=== PATIENT | female | born 1990 | race African-American/Black ===

== ENCOUNTER 2020-10-31 00:57 | Outpatient (CLI) | payer OTHER, SELFPAY ==
[2020-10-31 19:13] LABS: SARS-CoV-2 RNA PCR Negative
== END 2020-10-31 00:58 | disposition home or self-care (01) ==
LOC: ANHCOVIDDT 00:57
PROVIDERS: Visit Provider Obstetrics & Gynecology
DX: Z01.818 Encounter for other preprocedural examination (principal); Z20.828 Contact with and (suspected) exposure to other viral communicable diseases
CPT/HCPCS: 87635; C9803; U0003

== ENCOUNTER 2020-11-02 17:37 | Emergency (ER) | payer OTHER, SELFPAY ==
[2020-11-02 17:58] VITALS: BP 133/69; PULSE 82; RESP 16; TEMP 36.1; O2SAT 100
[2020-11-02 18:25] LABS: Basophils Absolute Auto 0.1 K/mm3 (0.0-0.1); Basophils Percent Auto 0.6 % (0.2-1.2); Eosinophils Absolute Auto 0.2 K/mm3 (0-0.3); Eosinophils Percent Auto 1.8 % (0-4.4); Hematocrit 33.7 % (37.0-47.0); Hemoglobin 11.2 g/dL (12.0-15.0); Immature Granulocyte Absolute 0.04 K/mm3 (0.00-0.031); Immature Granulocyte Percent A 0.3 % (0-0.5); Lymphocytes Absolute Auto 1.91 K/mm3 (0.9-3.2); Lymphocytes Percent Auto 15.1 % (18.3-44.2); Mean Corpuscular HGB Conc 33.2 g/dl (32-36); Mean Corpuscular Hemoglobin 29.4 pg (26-34); Mean Corpuscular Volume 88.5 fl (80-100); Monocytes Absolute Auto 0.7 K/mm3 (0.1-0.6); Monocytes Percent Auto 5.8 % (2.6-8.5); Neutrophils Absolute Auto 9.7 K/mm3 (1.3-6.7); Neutrophils Percent Auto 76.4 % (45.5-73.1); Platelet Count Result 316 k/mm3 (150-375); Red Blood Count 3.81 M/mm3 (4.2-5.4); Red Cell Distribution Width 12.2 % (11.5-14.5); White Blood Count 12.7 K/mm3 (4.5-10.0)
--- NOTE | 2020-11-02 18:32 | ED.GENADULT ---
HPI - General Adult General Chief complaint: Vaginal Bleeding Stated complaint: MISCARRIAGE SCHEDULED FOR D&C 11/04 Time Seen by Provider: 11/02/20 17:49 Source: RN notes reviewed History of Present Illness HPI narrative: Patient presents to emergency department from home for vaginal bleeding. Patient states that she is approximately 6 weeks . She states she has been having some increased cramping and mild vaginal bleeding and went to her [facility] Dr. Randolph today. They did an ultrasound in the office which showed the patient still had retained sac and is scheduled for D&C on the ninth of the month. Patient states that she got home and had some increased bleeding this evening and cramping pain in the emergency department for further evaluation she states she took no pain medication for the symptoms she denies any fevers or chills chest pain shortness of breath or any other symptoms Related Data Allergies Allergy/AdvReac Type Severity Reaction Status Date / Time No Known Allergies Allergy Verified 10/29/20 09:39 Review of Systems Review of Systems: Narrative: Gen.: Denies fevers or chills ENT: Denies congestion Respiratory: Denies shortness of breath or cough CV: Denies chest pain or palpitations GI: Reports abdominal cramping denies nausea, emesis or diarrhea see HPI Musculoskeletal: Denies back pain or muscle pain Neuro: Denies numbness, tingling, weakness or focal weakness Skin: Denies rash Except as documented, all other systems reviewed and negative [facility] Past Medical History Medical History (Updated 11/02/20 @ 19:53 by Lisandro Cowart DO) Patient denies significant medical history Family History Family History (Updated 07/26/19 @ 08:05 by DOCTOR UNKNOWN) Mother Hypertension Family history of sarcoidosis Grandparent Family history of elevated blood lipids Social History Social History Smoking packs per day: 0.25 Smoking cigarettes per day: 5.0 Years smoked: 10 Smoking pack-years: 2.50 Smoking status: Current every day smoker Tobacco type: cigarettes Alcohol intake: current Gender identity (if verbalized by the patient): Female Spiritual care concerns: No Exam Narrative: Exam Narrative: APPEARANCE: No acute distress, nontoxic, resting in bed EYES: EOMI HEENT: Normocephalic, atraumatic, OMM RESPIRATORY: No respiratory distress Clear to auscultation bilaterally with no rhonchi wheezing or rales. CARDIOVASCULAR: Regular rate and rhythm without murmurs rubs or gallops. ABDOMINAL: Soft, nontender, nondistended, no rebound or guarding : Normal external exam, mild amount of dark red blood with clots in vaginal canal cervix is closed MUSCULOSKELETAl: Moves all extremities. No clubbing, cyanosis or edema. NEURO: Awake and alert. Following commands, speech normal, no focal deficits SKIN:: Warm, dry. No rashes lesions or abrasions PSYCHIATRIC: Normal affect/mood, Course Course Emergency Course: Discussed with Dr. Randolph presentation work-up the patient scheduled for repeat ultrasound the office tomorrow agrees with plan for discharge and follow-up as an outpatient Patient states that they are feeling much better at this time. States abdominal pain has resolved. Repeat abdominal exam shows the patient's abdomen to be soft and nontender. Discussed with patient results of workup and diagnosis. Discussed need for follow-up with primary care physician, reasons to return to the emergency department in proper use of medication. Patient understands and agrees to current treatment plan Vital Signs Vital signs: Vital Signs Temperature 97.0 F L 11/02/20 17:58 Pulse Rate 82 11/02/20 17:58 Respiratory Rate 16 11/02/20 17:58 Blood Pressure 133/69 11/02/20 17:58 Pulse Oximetry 100 11/02/20 17:58 Temperature 97.0 F L 11/02/20 17:58 Pulse Rate 82 11/02/20 17:58 Respiratory Rate 16 11/02/20 17:58 Blood Pressure 133/
--- NOTE | 2020-11-02 18:57 | PC.NURSE ---
this RN to bedside. unsuccessful x 1 for peripheral IV access. patient has small hematoma in left AC from lab draws. alert. oriented. updated on current treatment plan and expected wait time. Angel RN to bedside.
[2020-11-02] MEDS: SODIUM CHLORIDE 0.9% IV 1,000 ML 999 ML IV CONT (19:11)
[2020-11-02 19:55] VITALS: BP 113/90; PULSE 79; RESP 18; O2SAT 100
== END 2020-11-02 20:00 | disposition home or self-care (01) ==
PROVIDERS: Emergency Medicine; Emergency Provider Emergency Medicine; PCP Nurse Practitioner Family
DX: O20.0 Threatened abortion (principal); Z3A.01 Less than 8 weeks gestation of pregnancy; O99.331 Smoking (tobacco) complicating pregnancy, first trimester; F17.210 Nicotine dependence, cigarettes, uncomplicated
CPT/HCPCS: 36415; 84702; 85025; 85461; 96361; 96374; 99284; J0131; J7030

== ENCOUNTER 2020-11-04 01:17 | Day surgery (SDC) | payer OTHER, SELFPAY ==
[2020-10-27 17:09] VITALS: BMI 37.5
[2020-11-04 06:18] VITALS: BP 119/80; PULSE 83; RESP 16; TEMP 36.7; O2SAT 100
[2020-11-04] MEDS: ACETAMINOPHEN 500 MG TABLET 1000 MG PO (07:11)
[2020-11-04] MEDS: LACTATED RINGERS 1,000 ML 30 ML IV CONT (07:20)
--- NOTE | 2020-11-04 08:04 | WPDANESEPPF ---
Anes - Initial Pre Proc Eval Procedure: Operation Date: 11/04/20 08:30 Proposed Procedures p Suction Dilation & Curettage - Araceli Randolph MD Date/Time: 11/04/20 08:04 Surgeon: Araceli Randolph MD Pre Op Diagnosis: Missed Ab Patient Data Age: 30 Gender: F Height: 5 ft 1 in Weight: 89.95 kg Last Vital Signs Temp 98.1 F 11/04/20 06:18 Pulse 83 11/04/20 06:18 Resp 16 11/04/20 06:18 BP 119/80 11/04/20 06:18 Pulse Ox 100 11/04/20 06:18 Allergies Allergy/AdvReac Type Severity Reaction Status Date / Time No Known Allergies Allergy Verified 11/04/20 07:09 Home Medications Medication Instructions Recorded Confirmed Type cholecalciferol (vitamin D3) 1,250 1,250 mcg PO WEEKLY #12 tablet 05/18/20 11/04/20 Rx mcg (50,000 unit) tablet [id number] [Pre-F 1 tablet PO DAILY 11/04/20 11/04/20 History Vitamin] Patient hx anesthesia problems: none Family hx anesthesia problems: none PMFSH Past Medical History Medical History (Updated 11/03/20 @ 00:00 by Background Daemon) Patient denies significant medical history Family History Family History (Updated 07/26/19 @ 08:05 by DOCTOR UNKNOWN) Mother Hypertension Family history of sarcoidosis Grandparent Family history of elevated blood lipids Social History Social History Smoking packs per day: 0.25 Smoking cigarettes per day: 5.0 Years smoked: 10 Smoking pack-years: 2.50 Smoking status: Current every day smoker Tobacco type: cigarettes Alcohol intake: current Living arrangements: with family Gender identity (if verbalized by the patient): Female Sexual Orientation (if Verbalized by the Patient): Straight or Heterosexual Spiritual care concerns: No Anes - Eval Final PreProcedure Day of Procedure 11/04/20 08:04 Patient weight: obese Heart: regular rate and rhythm Lungs: clear to auscultation Airway: Mallampati scale class II Neurological: alert and oriented Last oral intake: >/= 8 hours ASA classification: II Emergent: no Anesthetic plan: proceed Anesthesia type and monitoring: general GIVS and standard monitoring Informed Consent: The patient's anesthetic plan and its attendant risks and benefits were discussed with the patient/family/POA. Questions were solicited and answers provided to the satisfaction of the patient/family/POA.
--- NOTE | 2020-11-04 08:10 | PM.IMHP ---
H&P: HPI History of Present Illness Date/Time: 11/04/20 08:10 Chief complaint: Missed Ab Narrative: Sandra Wagoner is a 30 year old female with an incomplete . We have agreed to perform suction D&C. She understands there are risks to this procedure. She understands that injuries may occur that result in hospitalization, more surgery, and severe illness. She understands risk of hemorrhage and infection. I described to the patient the procedure in detail. Review of Systems Constitutional: Constitutional: Reports no additional constitutional complaints, Denies fatigue, Denies headache(s), Denies lethargy and Denies weakness Eyes: Eyes: Reports no additional eye complaints, Denies blurry vision and Denies photophobia ENT: Reports as per HPI, Denies headache(s) and Denies neck pain Cardiovascular: Cardiovascular: Denies chest pain, Denies diaphoresis, Denies leg edema, Denies palpitations and Denies dyspnea Respiratory: Respiratory: Denies hemoptysis, Denies dyspnea and Denies wheezing Gastrointestinal: Gastrointestinal: Denies abdominal pain, Denies melena, Denies bloating, Denies hematochezia, Denies nausea and Denies vomiting Genitourinary: Genitourinary: Reports no additional female genitourinary complaints Musculoskeletal: Musculoskeletal: Denies joint swelling, Denies neck pain, Denies numbness and Denies stiffness Neurologic: Denies Abnormal speech present, Denies confusion, Denies headache(s), Denies numbness and Denies weakness Psychiatric: Psychiatric: Denies anxiety, Denies confusion, Denies depression, Denies homicidal ideation and Denies suicidal ideation Endocrine: Endocrine: Denies fatigue and Denies palpitations Allergic/Immunologic: Allergic/Immunologic: Denies wheezing PMFSH Past Medical History Medical History (Updated 11/04/20 @ 08:11 by Araceli Randolph MD) Patient denies significant medical history Family History Family History (Updated 07/26/19 @ 08:05 by DOCTOR UNKNOWN) Mother Hypertension Family history of sarcoidosis Grandparent Family history of elevated blood lipids Social History Social History Smoking packs per day: 0.25 Smoking cigarettes per day: 5.0 Years smoked: 10 Smoking pack-years: 2.50 Smoking status: Current every day smoker Tobacco type: cigarettes Alcohol intake: current Living arrangements: with family Gender identity (if verbalized by the patient): Female Sexual Orientation (if Verbalized by the Patient): Straight or Heterosexual Spiritual care concerns: No Meds Home Medications and Allergies Home Medications Medication Instructions Recorded Confirmed Type cholecalciferol (vitamin D3) 1,250 1,250 mcg PO WEEKLY #12 tablet 05/18/20 11/04/20 Rx mcg (50,000 unit) tablet [id number] [Pre-F 1 tablet PO DAILY 11/04/20 11/04/20 History Vitamin] Allergies Allergy/AdvReac Type Severity Reaction Status Date / Time No Known Allergies Allergy Verified 11/04/20 07:09 Vital Signs Vital Signs - 24 hr 11/04/20 06:18 Temperature 98.1 F Pulse Rate 83 Respiratory Rate 16 Blood Pressure 119/80 Pulse Oximetry 100 Exam Const: General: healthy appearing, comfortable and no acute distress; No confusion Orientation/consciousness: No confusion Eyes: Direct Ophthalmoscopy: No photophobia Resp: Auscultation: clear to auscultation bilaterally, no rales, no rhonchi and no wheezes Cardio: Rate: regular rate Heart sounds: no click, no murmurs and no rubs GI: Inspection: non-distended GI Palp: No abdominal tenderness Auscultation: normal bowel sounds Neuro: General: No confusion Speech: No Abnormal speech present Extrem: General: normal to inspection, no pedal edema and no calf tenderness Assessment and Plan Assessment and plan (1) Incomplete : Code(s): O03.4 - Incomplete spontaneous without complicat
--- NOTE | 2020-11-04 08:11 | WPDHPUPDATE1 ---
History and Physical Update Update Date/Time: 11/04/20 08:11 History and Physical has been reviewed, including an updated exam of the patient. There are NO changes in the patient's condition. Risks, benefits, and alternatives have been discussed and questions answered. Patient agrees to proceed with procedure.
[2020-11-04] MEDS: LIDOCAINE HCL 1% LOCAL INJ 20 ML VIAL 50 ML INFILTRATE (08:42)
--- NOTE | 2020-11-04 08:51 | P.OP_ITS ---
Procedure Note - Detailed Date of procedure: 11/04/20 Pre-op diagnosis: Missed Ab Post-op diagnosis: same Procedure performed: Suction D&C Description of procedure: The patient was taken the operating room. She has prepped and draped in dorsal lithotomy position after induction of mac anesthesia. A speculum was placed in the vagina. The cervix was grasped with a tenaculum. The cervix was injected at 3 and 9:00 a.m. with 1% lidocaine. The cervix was dilated up to 8 mm using Monterroso dilators. An 8 curved plastic suction curette was then applied to the intrauterine cavity. All of the surfaces in the intrauterine cavity were curettage under VAC. A sharp medium-size curette was then used to curettage all the surfaces to confirmed the removal of all the products conception. When all surfaces for bleed to be clean the curette was r emoved. The suction curette was then reapplied to remove all the debris. The procedure was terminated. The tenaculum was removed. The speculum was removed. The patient tolerated the procedure well. She was taken recovery room in stable condition. Anesthesia: MAC Surgeon: Araceli Randolph MD Estimated blood loss (mL): 25 Drains: No Packing: No Pathology: yes Complications: No immediate complications Condition: stable Disposition: PACU Findings: Normal vulva vagina and cervix. The moderate amounts of products conception. 8 cm uterus.
[2020-11-04 08:55] VITALS: BP 131/68; PULSE 63; RESP 16; O2SAT 100
[2020-11-04 09:25] VITALS: BP 117/69; PULSE 57; RESP 16; O2SAT 100
[2020-11-04 09:41] VITALS: BP 106/69; PULSE 52; RESP 16
== END 2020-11-04 10:16 | disposition home or self-care (01) ==
PROVIDERS: PCP Nurse Practitioner Family; Visit Provider Obstetrics & Gynecology
PROC: (CPT 59820; principal; 2020-11-04 08:30)
DX: O02.1 Missed abortion (principal); F17.210 Nicotine dependence, cigarettes, uncomplicated; E66.9 Obesity, unspecified; Z68.37 Body mass index [BMI] 37.0-37.9, adult
CPT/HCPCS: 59820; 88305; A9270; J2250; J2405; J2704; J3010; J7120

== ENCOUNTER 2021-03-03 17:49 | Emergency (ER) | payer OTHER, SELFPAY ==
[2021-03-03 17:51] VITALS: BP 143/79; PULSE 82; RESP 18; TEMP 36.3; O2SAT 100
--- NOTE | 2021-03-03 18:04 | ED.FEMALEGU ---
HPI - Female Genitourinary General Chief complaint: Abdominal Pain Stated complaint: pt with abd cramping Time Seen by Provider: 03/03/21 18:00 Source: patient Mode of arrival: ambulatory Limitations: no limitations History of Present Illness HPI Narrative: Patient is a 30-year-old female complaining of lower abdominal cramping, 3 out of 10, that started today. Patient states her cramping is mild, nonradiating. Patient states that she is 7 weeks , denies any vaginal bleeding or discharge. Patient states that she has not had any care or ultrasound. Related Data Allergies Allergy/AdvReac Type Severity Reaction Status Date / Time No Known Allergies Allergy Verified 03/03/21 17:57 Review of Systems Review of Systems: All systems reviewed & are unremarkable except as noted in HPI and below Constitutional: Constitutional: Denies body ache(s), Denies chills, Denies excessive sweating, Denies fatigue, Denies fever(s), Denies headache(s), Denies lethargy, Denies malaise, Denies weakness and Denies weight loss Eyes: Eyes: Denies blurry vision, Denies change in vision and Denies loss of vision ENT: Denies dizziness, Denies ear discharge, Denies headache(s), Denies lip swelling, Denies epistaxis, Denies nasal congestion, Denies neck pain, Denies throat swelling and Denies tongue swelling Cardiovascular: Cardiovascular: Denies chest pain, Denies chest pain at rest, Denies chest pain with activity, Denies diaphoresis, Denies rapid heart rate, Denies edema, Denies irregular heart rhythm, Denies lightheadedness, Denies palpitations, Denies dyspnea and Denies dyspnea on exertion Respiratory: Respiratory: Denies chest congestion, Denies cough, Denies hemoptysis, Denies dyspnea and Denies dyspnea on exertion Gastrointestinal: Gastrointestinal: Denies melena, Denies hematochezia, Denies diarrhea, Denies nausea, Denies vomiting and Denies hematemesis Musculoskeletal: Musculoskeletal: Denies abnormal gait, Denies deformity, Denies joint swelling, Denies limited range of motion, Denies neck pain and Denies numbness Neurologic: Denies Abnormal speech present, Denies abnormal gait, Denies confusion, Denies dizziness, Denies headache(s), Denies focal weakness, Denies loss of vision, Denies numbness, Denies Other visual disturbances, Denies Sensory deficit (Neuro) and Denies weakness Psychiatric: Psychiatric: Denies confusion, Denies depression, Denies auditory hallucinations, Denies homicidal ideation and Denies suicidal ideation Endocrine: Endocrine: Denies cold intolerance, Denies excessive sweating, Denies fatigue, Denies heat intolerance and Denies palpitations Hematologic/Lymphatic: Hematologic/Lymphatic: Denies easy bleeding and Denies easy bruising Allergic/Immunologic: Allergic/Immunologic: Denies lip swelling, Denies throat swelling and Denies tongue swelling PMFSH Past Medical History Medical History Patient denies significant medical history Family History Family History Mother Hypertension Family history of sarcoidosis Grandparent Family history of elevated blood lipids Social History Social History Smoking packs per day: 0.25 Smoking cigarettes per day: 5.0 Years smoked: 10 Smoking pack-years: 2.50 Smoking status: Current every day smoker Tobacco type: cigarettes Alcohol intake: current Gender identity (if verbalized by the patient): Female Spiritual care concerns: No Exam Const: General: cooperative, healthy appearing, comfortable, no acute distress, well developed, alert and awake; No confusion Orientation/consciousness: oriented to person, oriented to place, oriented to time, patient oriented x3 and No confusion Limitations: no limitations HENMT: Head: normal to inspection, normocephalic and atraumatic Ears: he
[2021-03-03] MEDS: SODIUM CHLORIDE 0.9% IV 1,000 ML 999 ML IV CONT (18:22)
[2021-03-03 18:31] VITALS: BP 135/71; O2SAT 100
[2021-03-03 18:36] LABS: Basophils Absolute Auto 0.1 K/mm3 (0.0-0.1); Basophils Percent Auto 0.7 % (0.2-1.2); Eosinophils Absolute Auto 0.3 K/mm3 (0-0.3); Eosinophils Percent Auto 2.8 % (0-4.4); Hematocrit 39.4 % (37.0-47.0); Hemoglobin 12.5 g/dL (12.0-15.0); Immature Granulocyte Absolute 0.03 K/mm3 (0.00-0.031); Immature Granulocyte Percent A 0.3 % (0-0.5); Immature Platelet Fraction Pct 5.8 % (0.9-11.2); Lymphocytes Absolute Auto 3.06 K/mm3 (0.9-3.2); Mean Corpuscular HGB Conc 31.7 g/dl (32-36); Mean Corpuscular Hemoglobin 28.4 pg (26-34); Mean Corpuscular Volume 89.5 fl (80-100); Monocytes Absolute Auto 0.7 K/mm3 (0.1-0.6); Monocytes Percent Auto 6.3 % (2.6-8.5); Neutrophils Absolute Auto 6.4 K/mm3 (1.3-6.7); Neutrophils Percent Auto 60.9 % (45.5-73.1); Platelet Count Result 333 k/mm3 (150-375); Red Cell Distribution Width 12.3 % (11.5-14.5); White Blood Count 10.6 K/mm3 (4.5-10.0)
[2021-03-03 18:40] LABS: Add Urine Microscopic? YES; Appearance Urine Cloudy (Clear); Bacteria Urine Trace /hpf; Bilirubin Urine Negative (Negative); Blood Urine Negative (Negative); Color Urine Yellow (Yellow); Glucose Urine UA Negative (Negative); Ketones Urine Trace mg/dL (Negative); Leukocyte Esterase Ur Negative LEU/UL (Negative); Mucus Urine Rare /lpf; Nitrate Urine Negative (Negative); Protein Urine Negative (Negative); RBC Urine 0-2 /hpf (0-2); Specific Grav Ur 1.021 (1.001-1.035); Squamous Epithelial Cell Urine Occasional /hpf (Few); Urobilinogen Urine Negative mg/dL (<2.0); WBC Urine 0-3 /hpf
[2021-03-03 18:46] VITALS: BP 129/78; O2SAT 100
[2021-03-03 18:54] LABS: Alanine Aminotransferase 13 U/L (4-35); Albumin Level 4.3 g/dL (3.5-5.1); Alkaline Phosphatase 81 U/L (38-126); Anion Gap 7 mmol/L (8-16); Aspartate Amino Transferase 23 U/L (14-36); Bilirubin,Total 0.3 mg/dL (0.2-1.3); Blood Urea Nitrogen 16 mg/dL (7-17); Carbon Dioxide 23 mmol/L (22-30); Chloride 106 mmol/L (98-107); Estimated CRCL calculation 106 ml/min; Estimated Glomerular Filt Rate > 60; Glucose 90 mg/dL (65-105); Potassium 4.2 mmol/L (3.4-5.0); Sodium 136 mmol/L (137-145)
[2021-03-03 19:01] VITALS: BP 125/72; PULSE 68; RESP 16; O2SAT 100
[2021-03-03 21:00] VITALS: BP 139/87; PULSE 75; RESP 18; O2SAT 100
== END 2021-03-03 21:00 | disposition home or self-care (01) ==
PROVIDERS: Emergency Provider Emergency Medicine; PCP Nurse Practitioner Family
DX: O26.891 Other specified pregnancy related conditions, first trimester (principal); R10.2 Pelvic and perineal pain; O99.331 Smoking (tobacco) complicating pregnancy, first trimester; F17.210 Nicotine dependence, cigarettes, uncomplicated; Z3A.01 Less than 8 weeks gestation of pregnancy
CPT/HCPCS: 36415; 80053; 81001; 84702; 85025; 85055; 96360; 99283; J7030

== ENCOUNTER 2021-03-12 13:13 | Outpatient (CLI) | payer OTHER, SELFPAY ==
--- NOTE | ~2021-03-12 | US_ITS ---
EXAMINATION: US OB <=14 wk fetus w TV DATE: 03/12/2021 13:52 INDICATION: First trimester dating and viability assessment TECHNIQUE: Real-time pelvic transabdominal and transvaginal ultrasound was performed. COMPARISON: None. FINDINGS: The uterus measures 10.6 x 5.0 x 6.6 cm. There is a 1.8 x 1.3 x 1.7 cm mass in the posterio r uterine body which has the appearance of a subserosal fibroid. There is an intrauterine gestationa l sac. A yolk sac is identified. heart motion is identified measuring 141 beats per minute (bpm ) by M-mode Doppler. The crown rump length measures 11 mm , which correlates with an estimated gestational age of 7 weeks and 1 day(s) (+/-) 5 day(s). The right ovary measures 1.8 x 1.6 x 1.9 cm. The left ovary measures 1.5 x 2.0 x 3.0 cm. There is nor mal vascular flow in the ovaries. There is no free fluid in the pelvis. IMPRESSION: 1. Live intrauterine with an estimated gestational age of 7 weeks and 1 day(s) (+/-) 5 day( s) and an estimated delivery date of 10/28/2021. Reviewed, dictated and finalized at location B. IMPRESSION: 1. Live intrauterine with an estimated gestational age of 7 weeks and 1 day(s) (+/-) 5 day(s) and an estimated delivery date of 10/28/2021.
== END 2021-03-12 13:14 ==
PROVIDERS: Visit Provider Student in an Organized Health Care Education/Training Program
DX: Z34.91 Encounter for supervision of normal pregnancy, unspecified, first trimester (principal); Z3A.01 Less than 8 weeks gestation of pregnancy
CPT/HCPCS: 76801; 76817

== ENCOUNTER 2021-04-06 11:53 | Outpatient (CLI) | payer OTHER, SELFPAY ==
[2021-04-06 13:02] LABS: Basophils Absolute Auto 0.1 K/mm3 (0.0-0.1); Basophils Percent Auto 0.7 % (0.2-1.2); Eosinophils Absolute Auto 0.3 K/mm3 (0-0.3); Eosinophils Percent Auto 3.5 % (0-4.4); Hematocrit 37.3 % (37.0-47.0); Hemoglobin 12.1 g/dL (12.0-15.0); Immature Granulocyte Absolute 0.03 K/mm3 (0.00-0.031); Immature Granulocyte Percent A 0.3 % (0-0.5); Immature Platelet Fraction Pct 6.5 % (0.9-11.2); Lymphocytes Absolute Auto 2.04 K/mm3 (0.9-3.2); Lymphocytes Percent Auto 22.7 % (18.3-44.2); Mean Corpuscular HGB Conc 32.4 g/dl (32-36); Mean Corpuscular Hemoglobin 29.2 pg (26-34); Mean Corpuscular Volume 89.9 fl (80-100); Mean Platelet Volume 10.4 fl (7.4-10.4); Monocytes Absolute Auto 0.6 K/mm3 (0.1-0.6); Monocytes Percent Auto 7.1 % (2.6-8.5); Neutrophils Absolute Auto 5.9 K/mm3 (1.3-6.7); Neutrophils Percent Auto 65.7 % (45.5-73.1); Platelet Count Result 327 k/mm3 (150-375); Red Blood Count 4.15 M/mm3 (4.2-5.4); Red Cell Distribution Width 12.2 % (11.5-14.5)
[2021-04-06 13:21] LABS: Add Urine Microscopic? YES; Appearance Urine Clear (Clear); Bacteria Urine Trace /hpf; Bilirubin Urine Negative (Negative); Blood Urine Negative (Negative); Color Urine Yellow (Yellow); Glucose Urine UA Negative (Negative); Ketones Urine Trace mg/dL (Negative); Leukocyte Esterase Ur Negative LEU/UL (NEGATIVE); Mucus Urine Few /lpf; Nitrate Urine Negative (Negative); Protein Urine Negative (Negative); RBC Urine 0-2 /hpf (0-2); Specific Grav Ur 1.025 (1.001-1.035); Squamous Epithelial Cell Urine Occasional /hpf (Few); Urobilinogen Urine Negative mg/dL (<2.0); WBC Urine 0-3 /hpf (0-3)
[2021-04-06 13:46] LABS: Thyroid Stimulating Hormone 0.498 uIU/mL (0.465-4.680)
[2021-04-06 13:48] LABS: Vitamin D 25 Hydroxy 22.1 ng/mL
[2021-04-06 13:57] LABS: HIV 1/2 Ab P24 Ag Result Negative (Negative)
[2021-04-06 14:02] LABS: Hepatitis B Surface Antigen Negative (Negative); Rubella IgG Antibody 14.5 IU/ML
[2021-04-06 15:17] LABS: Hepatitis C Virus Antibody Negative (Negative)
[2021-04-07 10:20] LABS: Rapid Plasma Reagin Non-Reactive (NonReactive)
[2021-04-12 08:16] LABS: Hematocrit 37.2 % (35.0-45.0); Hemoglobin 12.3 g/dL (11.7-15.5); MCH 29.1 pg (27.0-33.0); MCV 88.2 FL (80.0-100.0); RDW 12.7 % (11.0-15.0); Red Blood Cell Count 4.22 Mill/uL (3.80-5.10)
== END 2021-04-06 11:54 | disposition home or self-care (01) ==
PROVIDERS: PCP Nurse Practitioner Family; Visit Provider Student in an Organized Health Care Education/Training Program
DX: Z34.90 Encounter for supervision of normal pregnancy, unspecified, unspecified trimester (principal); Z3A.00 Weeks of gestation of pregnancy not specified
CPT/HCPCS: 36415; 81001; 82306; 83021; 84443; 85025; 85055; 86592; 86703; 86762; 86787; 86803; 86850; 86900; 86901; 87086; 87340; G0432

== ENCOUNTER 2021-08-06 07:55 | Outpatient (CLI) | payer OTHER, SELFPAY ==
[2021-08-06 09:10] LABS: Glucose Fasting Gestational 95 mg/dL (>/=95)
[2021-08-06 11:20] LABS: Glucose 1 Hour Gest 201 mg/dL (>/=180)
[2021-08-06 11:59] LABS: Glucose 2 Hour Gest 172 mg/dL (>/= 155)
[2021-08-06 13:17] LABS: Glucose 3 Hour Gest 126 mg/dL (>/=140)
== END 2021-08-06 07:56 | disposition home or self-care (01) ==
PROVIDERS: PCP Nurse Practitioner Family; Visit Provider Obstetrics & Gynecology
DX: Z34.92 Encounter for supervision of normal pregnancy, unspecified, second trimester (principal); Z3A.00 Weeks of gestation of pregnancy not specified
CPT/HCPCS: 36415; 82951; 82952

== ENCOUNTER 2021-08-10 16:00 | Outpatient (RCR) | payer OTHER, SELFPAY ==
[2021-08-10 16:37] VITALS: BP 121/67; PULSE 85
== END 2021-11-08 23:59 | disposition home or self-care (01) ==
LOC: ANHOBOP 16:00
PROVIDERS: PCP Nurse Practitioner Family; Visit Provider Obstetrics & Gynecology
DX: O36.8130 Decreased fetal movements, third trimester, not applicable or unspecified (principal); Z3A.28 28 weeks gestation of pregnancy
CPT/HCPCS: 59025

== ENCOUNTER 2021-09-21 11:42 | Outpatient (CLI) | payer OTHER, SELFPAY ==
[2021-09-21 12:12] LABS: Basophils Percent Auto 0.4 % (0.2-1.2); Eosinophils Absolute Auto 0.1 K/mm3 (0-0.3); Eosinophils Percent Auto 1.5 % (0-4.4); Hematocrit 35.4 % (37.0-47.0); Hemoglobin 11.5 g/dL (12.0-15.0); Immature Granulocyte Absolute 0.06 K/mm3 (0.00-0.031); Immature Granulocyte Percent A 0.7 % (0-0.5); Lymphocytes Absolute Auto 1.77 K/mm3 (0.9-3.2); Lymphocytes Percent Auto 19.2 % (18.3-44.2); Mean Corpuscular HGB Conc 32.5 g/dl (32-36); Mean Corpuscular Hemoglobin 29.7 pg (26-34); Mean Corpuscular Volume 91.5 fl (80-100); Mean Platelet Volume 10.8 fl (7.4-10.4); Monocytes Absolute Auto 0.7 K/mm3 (0.1-0.6); Monocytes Percent Auto 7.4 % (2.6-8.5); Neutrophils Absolute Auto 6.5 K/mm3 (1.3-6.7); Neutrophils Percent Auto 70.8 % (45.5-73.1); Platelet Count Result 238 k/mm3 (150-375); Red Blood Count 3.87 M/mm3 (4.2-5.4); Red Cell Distribution Width 12.5 % (11.5-14.5); White Blood Count 9.2 K/mm3 (4.5-10.0)
[2021-09-21 13:12] LABS: HIV 1/2 Ab P24 Ag Result Negative (Negative)
[2021-09-22 08:30] LABS: Rapid Plasma Reagin Non-Reactive (NonReactive)
== END 2021-09-21 11:43 | disposition home or self-care (01) ==
LOC: ANHLAB 11:44
PROVIDERS: PCP Nurse Practitioner Family; Visit Provider Student in an Organized Health Care Education/Training Program
DX: Z34.90 Encounter for supervision of normal pregnancy, unspecified, unspecified trimester (principal); Z3A.00 Weeks of gestation of pregnancy not specified
CPT/HCPCS: 36415; 85025; 86592; 86703; G0432

== ENCOUNTER 2021-10-14 15:27 | Outpatient (CLI) | payer OTHER, SELFPAY ==
[2021-10-14] VITALS (16 sets, daily range): BP systolic 116–147; BP diastolic 62–96; PULSE 76–90; TEMP 37; BMI 41.8
--- NOTE | 2021-10-14 16:10 | OBADM ---
Addendum entered by Eve Mims RN 10/14/21 16:59: Admitted as clinical outpatient for evaluation of hypertension in . Original Note: This patient, Sandra Wagoner, admitted to the OB room OB Post 113 for observation. Patient/family oriented to hospital policies and general routines including ID bracelet, bed and alarms, visiting hours, pain management, procedures, bathroom and other care routines, personal items, smoking policy, room service/diet, and visiting hours. Patient/Family are encouraged to report perceived risks to care and to ask questions if they do not understand what they are told or what they should do.
--- NOTE | 2021-10-14 16:54 | PC.NURSE ---
Dr. Perez stopped in pt room to check on her. Viewed reactive NST and BP's. Labs not back yet.
[2021-10-14 17:01] LABS: Basophils Percent Auto 0.4 % (0.2-1.2); Eosinophils Absolute Auto 0.1 K/mm3 (0-0.3); Eosinophils Percent Auto 0.9 % (0-4.4); Hemoglobin 11.1 g/dL (12.0-15.0); Immature Granulocyte Absolute 0.07 K/mm3 (0.00-0.031); Immature Granulocyte Percent A 0.8 % (0-0.5); Lymphocytes Absolute Auto 1.87 K/mm3 (0.9-3.2); Lymphocytes Percent Auto 20.4 % (18.3-44.2); Mean Corpuscular HGB Conc 32.6 g/dl (32-36); Mean Corpuscular Hemoglobin 29.4 pg (26-34); Mean Corpuscular Volume 89.9 fl (80-100); Mean Platelet Volume 10.5 fl (7.4-10.4); Monocytes Absolute Auto 0.7 K/mm3 (0.1-0.6); Monocytes Percent Auto 7.6 % (2.6-8.5); Neutrophils Absolute Auto 6.4 K/mm3 (1.3-6.7); Neutrophils Percent Auto 69.9 % (45.5-73.1); Platelet Count Result 273 k/mm3 (150-375); Red Blood Count 3.78 M/mm3 (4.2-5.4); Red Cell Distribution Width 12.7 % (11.5-14.5); White Blood Count 9.2 K/mm3 (4.5-10.0)
[2021-10-14 17:03] LABS: Add Urine Microscopic? YES; Appearance Urine Clear (Clear); Bilirubin Urine Negative (Negative); Blood Urine Negative (Negative); Color Urine Yellow (Yellow); Glucose Urine UA Negative (Negative); Ketones Urine 2+ mg/dL (Negative); Leukocyte Esterase Ur Negative LEU/UL (Negative); Mucus Urine Rare /lpf; Nitrate Urine Negative (Negative); Protein Urine Negative (Negative); RBC Urine 0-2 /hpf (0-2); Specific Grav Ur 1.018 (1.001-1.035); Squamous Epithelial Cell Urine Occasional /hpf (Few); Urobilinogen Urine Negative mg/dL (<2.0); WBC Urine 0-3 /hpf
[2021-10-14 17:22] LABS: Alanine Aminotransferase 16 U/L (4-35); Albumin Level 3.3 g/dL (3.5-5.1); Alkaline Phosphatase 191 U/L (38-126); Anion Gap 8 mmol/L (8-16); Aspartate Amino Transferase 23 U/L (14-36); Bilirubin,Total 0.3 mg/dL (0.2-1.3); Blood Urea Nitrogen 11 mg/dL (7-17); Calcium 9.4 mg/dL (8.4-10.2); Carbon Dioxide 18 mmol/L (22-30); Chloride 105 mmol/L (98-107); Estimated CRCL calculation 146 ml/min; Estimated Glomerular Filt Rate > 60; Glucose 74 mg/dL (65-110); Potassium 3.8 mmol/L (3.4-5.0); Sodium 131 mmol/L (137-145); Uric Acid 4.9 mg/dL (2.5-7.5)
[2021-10-14 17:55] LABS: Creatinine Urine 147.5 mg/dL
[2021-10-14 17:56] LABS: Total Protein Urine Random < 5 mg/dL; Ur Ttl Prot Creatinine Ratio < 0.03 mg/mg (0-0.20)
[2021-10-14 18:55] LABS: Glucose Point of Care 69 mg/dl (65-105)
--- NOTE | 2021-10-14 21:33 | PC.NURSE ---
Pt discharged with discharge instructions and reservation for induction in the morning at 0600.
== END 2021-10-14 21:35 | disposition home or self-care (01) ==
LOC: ANHOBOP 15:31 → ANHOBPP 15:32
PROVIDERS: PCP Nurse Practitioner Family; Visit Provider Student in an Organized Health Care Education/Training Program
DX: O13.9 Gestational [pregnancy-induced] hypertension without significant proteinuria, unspecified trimester (principal); Z3A.00 Weeks of gestation of pregnancy not specified
CPT/HCPCS: 36415; 59025; 80053; 81001; 82570; 82948; 84156; 84550; 85025; 99199

== ENCOUNTER 2021-10-15 06:07 | Inpatient (IN) | payer OTHER, SELFPAY ==
[2021-10-15] VITALS (229 sets, daily range): BP systolic 109–156; BP diastolic 50–109; PULSE 26–108; RESP 18; TEMP 36.4–37.7; O2SAT 82–100; BMI 42.0
--- NOTE | 2021-10-15 07:42 | LDADM ---
This patient, Sandra Wagoner, was admitted to Labor/Delivery/Recovery 107 on 10/15/21 at 06:07. Plans for labor, pain management and were discussed with patient. Patient/family oriented to hospital policies and general routines including ID bracelet, bed and alarms, pain management, procedures, bathroom and other care routines, personal items, smoking policy, room service/diet and guest tray routines, infant security routines, call light and visiting hours. Patient/Family are encouraged to report perceived risks to care and to ask questions if they do not understand what they are told or what they should do. See OBIX for further documentation.
[2021-10-15 07:51] LABS: Basophils Absolute Auto 0.1 K/mm3 (0.0-0.1); Basophils Percent Auto 0.5 % (0.2-1.2); Eosinophils Absolute Auto 0.1 K/mm3 (0-0.3); Eosinophils Percent Auto 0.7 % (0-4.4); Hematocrit 33.9 % (37.0-47.0); Hemoglobin 11.3 g/dL (12.0-15.0); Immature Granulocyte Absolute 0.05 K/mm3 (0.00-0.031); Immature Granulocyte Percent A 0.5 % (0-0.5); Lymphocytes Absolute Auto 1.55 K/mm3 (0.9-3.2); Lymphocytes Percent Auto 14.2 % (18.3-44.2); Mean Corpuscular HGB Conc 33.3 g/dl (32-36); Mean Corpuscular Hemoglobin 29.1 pg (26-34); Mean Corpuscular Volume 87.4 fl (80-100); Mean Platelet Volume 10.7 fl (7.4-10.4); Monocytes Absolute Auto 0.7 K/mm3 (0.1-0.6); Monocytes Percent Auto 6.6 % (2.6-8.5); Neutrophils Absolute Auto 8.5 K/mm3 (1.3-6.7); Neutrophils Percent Auto 77.5 % (45.5-73.1); Platelet Count Result 298 k/mm3 (150-375); Red Blood Count 3.88 M/mm3 (4.2-5.4); Red Cell Distribution Width 12.7 % (11.5-14.5); White Blood Count 10.9 K/mm3 (4.5-10.0)
[2021-10-15 07:54] LABS: Alanine Aminotransferase 17 U/L (4-35); Albumin Level 3.4 g/dL (3.5-5.1); Alkaline Phosphatase 191 U/L (38-126); Anion Gap 6 mmol/L (8-16); Aspartate Amino Transferase 23 U/L (14-36); Bilirubin,Total 0.4 mg/dL (0.2-1.3); Blood Urea Nitrogen 12 mg/dL (7-17); Carbon Dioxide 20 mmol/L (22-30); Chloride 105 mmol/L (98-107); Estimated CRCL calculation 125 ml/min; Estimated Glomerular Filt Rate > 60; Glucose 92 mg/dL (65-110); Potassium 3.8 mmol/L (3.4-5.0); Sodium 131 mmol/L (137-145); Uric Acid 5.6 mg/dL (2.5-7.5)
[2021-10-15] MEDS: LACTATED RINGERS 1,000 ML 125 ML IV CONT ×4 (08:03→22:57)
[2021-10-15] MEDS: OXYTOCIN 30 UNITS/NS 500 ML 30 UNITS/500 ML BAG 6 UNITS IV CONT (08:04)
--- NOTE | 2021-10-15 08:55 | WPDANESEPP ---
Anes - Eval Pre Procedure Procedure: labor epidural Date/Time: 10/15/21 08:55 Surgeon: nitza Preop Diagnosis: pain during labor Pre Op Diagnosis: Induction of Labor Patient Data Age: 31 Gender: F Height: 1.55 m Weight: 101 kg Last Vital Signs Temp 36.4 C 10/15/21 08:30 Pulse 80 10/15/21 08:27 BP 134/81 10/15/21 08:27 Allergies Allergy/AdvReac Type Severity Reaction Status Date / Time No Known Allergies Allergy Verified 10/15/21 06:32 Home Medications Medication Instructions Recorded Confirmed Type vits 75-iron 28 mg-folic 1 pkg PO HS 04/06/21 10/15/21 History acid 800 mcg-omega-3 oral combo pack blood sugar diagnostic #100 ea 08/10/21 10/15/21 Rx lancets 21 gauge #200 ea 08/10/21 10/15/21 Rx Laboratory Tests 10/15/21 10/15/21 10/15/21 07:32 07:32 07:32 WBC 10.9 K/mm3 H K/mm3 (4.5-10.0) RBC 3.88 M/mm3 L M/mm3 (4.2-5.4) Hgb 11.3 g/dL L g/dL (12.0-15.0) Hct 33.9 % L % (37.0-47.0) MCV 87.4 fl fl (80-100) MCH 29.1 pg pg (26-34) MCHC 33.3 g/dl g/dl (32-36) RDW 12.7 % % (11.5-14.5) Plt Count 298 k/mm3 k/mm3 (150-375) MPV 10.7 fl H fl (7.4-10.4) Immature Gran % (Auto) 0.5 % % (0-0.5) Neut % (Auto) 77.5 % H % (45.5-73.1) Lymph % (Auto) 14.2 % L % (18.3-44.2) [place] % (Auto) 6.6 % % (2.6-8.5) Eos % (Auto) 0.7 % % (0-4.4) Baso % (Auto) 0.5 % % (0.2-1.2) Lymph # (Auto) 1.55 K/mm3 K/mm3 (0.9-3.2) [place] # (Auto) 0.7 K/mm3 H K/mm3 (0.1-0.6) Eos # (Auto) 0.1 K/mm3 K/mm3 (0-0.3) Baso # (Auto) 0.1 K/mm3 K/mm3 (0.0-0.1) Abs Immat Gran (auto) 0.05 K/mm3 H K/mm3 (0.00-0.031) Absolute Neuts (auto) 8.5 K/mm3 H K/mm3 (1.3-6.7) Absolute Nucleated RBC 0.0 K/mm3 K/mm3 (0.0-0.012) Nucleated RBC % 0.0 % % (0.0-0.2) Sodium Potassium Chloride Carbon Dioxide Anion Gap BUN Creatinine Estim Creat Clear Calc Estimated GFR Glucose Uric Acid Calcium Total Bilirubin AST ALT Alkaline Phosphatase Total Protein Albumin RPR Pending Blood Type O Positive Antibody Screen Negative 10/15/21 07:32 WBC RBC Hgb Hct MCV MCH MCHC RDW Plt Count MPV Immature Gran % (Auto) Neut % (Auto) Lymph % (Auto) [place] % (Auto) Eos % (Auto) Baso % (Auto) Lymph # (Auto) [place] # (Auto) Eos # (Auto) Baso # (Auto) Abs Immat Gran (auto) Absolute Neuts (auto) Absolute Nucleated RBC Nucleated RBC % Sodium 131 mmol/L L mmol/L (137-145) Potassium 3.8 mmol/L mmol/L (3.4-5.0) Chloride 105 mmol/L mmol/L (98-107) Carbon Dioxide 20 mmol/L L mmol/L (22-30) Anion Gap 6 mmol/L L mmol/L (8-16) BUN 12 mg/dL mg/dL (7-17) Creatinine 0.60 mg/dL L mg/dL (0.7-1.0) Estim Creat Clear Calc 125 ml/min ml/min Estimated GFR > 60 (59 - ) Glucose 92 mg/dL mg/dL (65-110) Uric Acid 5.6 mg/dL mg/dL (2.5-7.5) Calcium 9.0 mg/dL mg/dL (8.4-10.2) Total Bilirubin 0.4 mg/dL mg/dL (0.2-1.3) AST 23 U/L U/L (14-36) ALT 17 U/L U/L (4-35) Alkaline Phosphatase 191 U/L H U/L (38-126) Total Protein 6.0 g/dL L g/dL (6.3-8.2) Albumin 3.4 g/dL L g/dL (3.5-5.1) RPR Blood Type Antibody Screen Patient hx anesthesia problems: none Family hx anesthesia problems: none Results Review: All pre-operative results and documents have been reviewed as part of the pre-operativ
[2021-10-15 12:12] LABS: Glucose Point of Care 58 mg/dl (65-105)
[2021-10-15 12:12] LABS: Glucose Point of Care 64 mg/dl (65-105)
--- NOTE | 2021-10-15 12:13 | PM.IMHP ---
H&P: HPI History of Present Illness Date/Time: 10/15/21 12:13 Patient is a 31 year old LMP 01/13/21 currently 38w1d gestation with MONISHA 10/28/21. Patient is dated by an ultrasound on 03/12/21 at 7w gestation. Patient presents to L&D for induction of labor secondary to gestational hypertension. Patient was seen in office yesterday where she had first documented elevated blood pressure measurement during this . She was observed on L&D for several hours during which time BP remained elevated. Patient was diagnosed with gestational hypertension. No severe blood pressures were noted and patient was asymptomatic. She denies any headache, chest pain, SOB, N/V, visual disturbances, or RUQ tenderness. Also denies any vaginal bleeding or leakage of fluid. Reports occasional contractions and good movement. course also complicated by gestational diabetes. Patient has been managed with diet alone and fingerstick measurements have been within normal limits. Chief Complaint: Intrauterine at 38w1d gestation Gestational hypertension Gestational Diabetes Review of Systems Review of Systems: All systems reviewed & are unremarkable except as noted in HPI and below Constitutional: Constitutional: Reports as per HPI, Reports no additional constitutional complaints, Denies chills, Denies fever(s), Denies headache(s) and Denies night sweats Eyes: Eyes: Reports as per HPI and Reports no additional eye complaints ENT: Reports system reviewed and no additional complaints, except as documented, Reports as per HPI, Reports Normal hearing present and Denies headache(s) Cardiovascular: Cardiovascular: Reports as per HPI, Reports no additional cardiovascular complaints, Denies chest pain and Denies dyspnea Respiratory: Respiratory: Reports as per HPI, Reports no additional respiratory complaints, Denies cough and Denies dyspnea Gastrointestinal: Gastrointestinal: Reports as per HPI, Reports no additional gastrointestinal complaints, Denies abdominal pain, Denies change in bowel habits, Denies change in stool character, Denies nausea and Denies vomiting Genitourinary: Genitourinary: Reports no additional female genitourinary complaints, Reports as per HPI, Denies abnormal vaginal bleeding, Denies genital lesions, Denies hot flashes, Denies dyspareunia, Denies pelvic pain, Denies sexual dysfunction, Denies urinary incontinence, Denies vaginal discharge, Denies vaginal dryness and Denies vaginal odor Musculoskeletal: Musculoskeletal: Reports no additional musculoskeletal complaints and Reports as per HPI Integumentary/Breasts: Skin/Breast: Reports system reviewed and no additional complaints, except as docu, Reports as per HPI, Denies breast pain and Denies nipple discharge Neurologic: Reports system reviewed and no additional complaints, except as documented, Reports as per HPI, Reports Normal hearing present and Denies headache(s) Psychiatric: Psychiatric: Reports no additional psychiatric complaints, Reports as per HPI, Denies anxiety and Denies depression Endocrine: Endocrine: Reports no additional endocrine complaints and Reports as per HPI Hematologic/Lymphatic: Hematologic/Lymphatic: Reports no additional hematologic/lymphatic complaints and Reports as per HPI Allergic/Immunologic: Allergic/Immunologic: Reports no additional allergic/immunologic complaints and Reports as per HPI PMFSH Past Medical History Medical History Missed x1 Morbid obesity with BMI of 40.0-44.9, adult Surgical History Surgical History History of dilation and curettage 11/04/21 History of mandibular surgery Plate in chin, jaw surgery [place] teeth extracted 2006 Family History Family History Mother Hypertension Family history of sarcoidosis Grandparent Family history of elevated blood l
[2021-10-15 15:08] LABS: Glucose Point of Care 62 mg/dl (65-105)
[2021-10-15 17:36] LABS: Glucose Point of Care 59 mg/dl (65-105)
[2021-10-15 17:36] LABS: Glucose Point of Care 55 mg/dl (65-105)
[2021-10-15 18:44] LABS: Glucose Point of Care 69 mg/dl (65-105)
[2021-10-15 20:16] LABS: Glucose Point of Care 64 mg/dl (65-105)
[2021-10-15] MEDS: SODIUM CHLORIDE 0.9% IV 300 ML 600 ML I-UTERINE (22:32)
[2021-10-15 22:47] LABS: Glucose Point of Care 81 mg/dl (65-105)
--- NOTE | 2021-10-15 23:26 | PM.OBPNLAB ---
Pain Control Date/time seen: 10/15/21 23:26 Notified by RN of prolonged decelerations x 2. Came in to see patient at bedside. Pitocin currently stopped. Patient in right lateral position with supplemental O2. tracing reassuring at present time. Review of tracing done. Prolonged decelerations, one lasting approx. 4 mins. followed by subsequent deceleration lasting 7 mins. as well as a few late decelerations noted. SVE 5-6/90/-2 with moderate caput noted. [place] Walk shows contractions q4-5 mins. No descensus of head noted since AROM this AM. IUPC placed earlier still in place. RN had started amnioinfusion prior to notifying MD of recent situation. tracing currently improved. Discussion had with patient regarding situation, which is primarily nonreassuring heart tracing remote from delivery, however, also arrest of dilation. Recommendation made to proceed with a section. Risks and benefits discussed. Patient and partner implied an understanding and agree with plan. Anesthesia notified.
--- NOTE | 2021-10-15 23:36 | WPDANESEFPP ---
Anes - Eval Final PreProcedure Day of Procedure 10/15/21 23:36 Patient weight: morbidly obese Heart: regular rate and rhythm Lungs: clear to auscultation and normal air movement Airway: Mallampati scale class II Neurological: alert and oriented Last oral intake: >/= 8 hours ASA classification: III Emergent: no Anesthetic plan: proceed Anesthesia type and monitoring: regional epidural and standard monitoring Results Review: All pre-operative results and documents have been reviewed as part of the pre-operative evaluation. Informed Consent: The patient's anesthetic plan and its attendant risks and benefits were discussed with the patient/family/POA. Questions were solicited and answers provided to the satisfaction of the patient/family/POA.
--- NOTE | 2021-10-15 23:39 | WPDHPUPDATE1 ---
History and Physical Update Update Date/Time: 10/15/21 23:39 History and Physical has been reviewed, including an updated exam of the patient. There are NO changes in the patient's condition. Risks, benefits, and alternatives have been discussed and questions answered. Patient agrees to proceed with procedure.
--- NOTE | 2021-10-15 23:39 | W.PM.PROC2 ---
Procedure Note - Detailed Date of Procedure 10/15/21 Pre-op Diagnosis Induction of Labor Surgeon Araceli Perez MD
--- NOTE | 2021-10-15 23:40 | W.PM.PROC2 ---
Procedure Note - Detailed Date of Procedure 10/16/21 Pre-op Diagnosis Intrauterine at 38w1d gestation Nonreassuring heart tracing remote from delivery Arrest of dilation Gestational diabetes Gestational hypertension Post-op Diagnosis same Procedure Performed Primary low transverse section via Pfannenstiel Surgeon Araceli Perez MD Shrimp Trawler Noemi Buitrago Anesthesia epidural Findings Live female in cephalic presentation weighing 5 lbs. 7 oz., apgars 8 and 9, meconium stained amniotic fluid, normal appearing uterus, ovaries, and fallopian tubes bilaterally Description of Procedure The patient was taken to the operating room, where she was transferred to the operating room table. The patient was placed in dorsal supine position with a leftward tilt. She was prepped and draped in the usual sterile fashion. Epidural anesthesia that was previously administered was tested and found to be adequate. A Pfannenstiel skin incision was made with a scalpel and carried through to underlying layer of fascia with the Bovie. The fascia was incised in the midline and the incision was extended laterally with the use of forceps and Topete scissors. The inferior aspect of the fascial incision was grasped with Matt clamps, elevated, and the underlying rectus muscle were dissected off with Topete scissors. Attention was then turned to the superior aspect of the fascial incision, which in a similar manner, was grasped with Matt clamps, elevated, and the underlying rectus muscles were also dissected off with Topete scissors. The rectus muscles were in the midline and the peritoneal cavity was entered bluntly. This incision was extended superiorly and inferiorly with good visualization of the bladder and care was taken to avoid blood vessels. A bladder blade was inserted. The vesicouterine peritoneum was identified and incised sharply with Metzenbaum scissors. This incision was extended laterally with Metzenbaum scissors and a bladder flap was created digitally. The bladder blade was replaced. A low-transverse uterine incision was made with a scalpel. This incision was extended laterally with bandage scissors. Amniotomy was performed. Meconium stained amniotic fluid was noted. The infant's head was grasped and gently guided to the level of the uterine incision. The infant's head was delivered easily and atraumatically without difficulty followed by the neck, shoulders, and rest of body with gentle fundal pressure. The infant's nose and mouth were suctioned with bulb suction. The cord was clamped and cut and the was handed off to awaiting nursing staff. A segment of cord was collected for cord gases. Cord blood was also collected. The placenta was then delivered manually with gentle uterine massage. Uterus was exteriorized and cleared of all clots and debris. The uterine incision was reapproximated with 0 Vicryl in a running, locked fashion. A second imbricating layer using 0 Monocryl performed. A tiny area of bleeding was noted inferior to incision. This incision was made hemostatic with a figure of eight suture using 0 Monocryl. Excellent hemostasis was noted. On inspection, the uterus, ovaries, and fallopian tubes appeared to be normal bilaterally. The uterus was replaced into the abdominal cavity. The gutters were cleared of all clots and debris. The uterine incision was inspected again and noted to be hemostatic. Hemaderm was applied across the uterine incision. Interceed was also applied across the uterine incision and anterior surface of the uterus. The peritoneum was reapproximated with 2-0 Monocryl. The fascia was then closed with 0 Vicryl in a running fashion. The subcutaneous layer was irrigated with water. Pinpoint areas of bleeding were made hemostatic with Bovie. The subcutaneous layer was reapproximated with 2-0 plain and the skin was then closed with Insorb absorbable sutures in a subcuticular fashion. The skin was cleansed and dried. Derm
[2021-10-16] VITALS (44 sets, daily range): BP systolic 112–191; BP diastolic 56–162; PULSE 74–98; RESP 16–27; TEMP 36.8–37.6; O2SAT 97–100
--- NOTE | 2021-10-16 00:58 | PM.OBPRVD ---
OB - Delivery Note Procedure Delivery date: 10/16/21 Procedure: Procedures Operation Date: 10/15/21 23:30 <No data on this case meets the specified criteria> events: Gestational Diabetes, Induced HTN, Labor Induction and Meconium Stained Fluid Intrapartal events: Intolerance Induction method: per pitocin protocol Delivery augmentation: rupture of membranes Delivery monitor: external FHT, external uterine and internal uterine Route of delivery: Specimen: Yes (placenta and cord, cord blood and cord gases) Quantitative Blood Loss (ml): 725 Anesthesia type: Epidural Disposition: PACU Complications: No immediate complications Baby Date of : 10/16/21 Time of : 00:11 Weeks of gestation at delivery: 38 gender: Female Weight (pounds): 5 Weight (ounces): 7 presentation: vertex Placenta delivery description: Manual Removal cord vessel description: 3 Vessels and Clamped/Cut score one minute: 8 score five minutes: 9
[2021-10-16] MEDS: OXYTOCIN 30 UNITS/NS 500 ML 30 UNITS/500 ML BAG 125 UNITS IV CONT (01:55)
[2021-10-16] MEDS: fentaNYL CITRATE INJ (*CRX) 100 MCG/2 ML VIAL 50 MCG IV PUSH (02:35)
--- NOTE | 2021-10-16 03:23 | OBPPTRN ---
Patient transferred to post room #281 via stretcher. Support person, Jonah, present. Oriented to unit, room, information board, rooming in, admission packet and security measures. Patient verbalizes understanding.
[2021-10-16] MEDS: KETOROLAC 30 MG/ML VIAL (*BKC) IV PUSH ×2 (06:02→13:16)
[2021-10-16] MEDS: DEXTROSE 5%/0.45% SOD CHL 1,000 ML 125 ML IV CONT (06:03)
--- NOTE | 2021-10-16 08:45 | P.PNOB_ITS ---
OB - PN: Subj Subjective Date/time seen: 10/16/21 08:45 Doing well this AM. Pain well controlled with medication. Denies any headache, chest pain, SOB, N/V, visual disturbances, or RUQ tenderness. Has not yet eaten. No ambulation yet. Villeda in place. Passing flatus. OB - PN: Obj Data Labs CBC & Chem 7: 10/15/21 07:32 10/15/21 07:32 Labs: Laboratory Results - last 24 hr 10/15/21 10/15/21 10/15/21 11:38 12:00 15:02 POC Capillary Glucose 58 L* 64 L 62 L 10/15/21 10/15/21 10/15/21 17:13 17:33 18:41 POC Capillary Glucose 55 L* 59 L* 69 10/15/21 10/15/21 20:14 22:41 POC Capillary Glucose 64 L 81 OB - PN A/P Assessment and Plan (1) delivery delivered: Code(s): O82 - Encounter for delivery without indication Status: Acute Assessment and Plan: POD#0 doing well encourage OOB to chair and ambulation advance diet as tolerated dc villeda this afternoon pain management PRN (2) Gestational hypertension: Code(s): O13.9 - Gestational [-induced] hypertension without significant p roteinuria, unspecified trimester Status: Acute Assessment and Plan: BP currently WNL asymptomatic (3) Gestational diabetes: Code(s): O24.419 - Gestational diabetes mellitus in , unspecified control Status: Acute Time Spent With Patient Time: Total time spent is greater than 50% in coordination of care (as documented) at patient's floor/unit and/or counseling patient: Exam Const: General: cooperative, healthy appearing, comfortable and no acute distress GI: Inspection: non-distended GI Palp: Yes Soft to palpation and No Tenderness to palpation present (GI) Other: inc covered with bandage, c/d/i Urinary Catheter: Urinary Catheter: patent and draining Extrem: Right lower extremity: edema Details: 1+ Left lower extremity: edema Details: 1+ Other: no calf tenderness
[2021-10-16] MEDS: MULTIVIT/MIN/PREN/FOL AC/IRON TABLET 1 TAB PO (09:01)
[2021-10-16] MEDS: DOCUSATE SODIUM 100 MG CAPSULE PO ×2 (09:01→17:05)
--- NOTE | 2021-10-16 10:25 | WPDANLDPN2 ---
Anes-Prog Note L&D Date/Time: 10/16/21 10:25 Comfortable throughout: section Neuraxial method: epidural Epidural/Spinal procedure site: clean & non-tender Neuro status: Neuro function grossly intact. Cardiovascular status: normal Respiratory status: normal Airway patency: baseline Mental status: baseline Post-Op hydration status: normal Vital Signs: Last Vital Signs Temp 37.1 C 10/16/21 07:30 Pulse 88 10/16/21 07:30 Resp 16 10/16/21 07:30 BP 112/67 10/16/21 07:30 Pulse Ox 100 10/16/21 07:30 Pain score (VAS): 12/06 I/O: Intake & Output 10/15/21 10/16/21 10/16/21 23:59 07:59 15:59 Intake Total 1999 1260 Output Total 1105 Balance 1999 155 Post-procedural complaints: none Patient feedback: Patient satisfied with anesthetic care.
--- NOTE | 2021-10-16 10:26 | WPDANLDNPN2 ---
Anes-Prog Note L&D-Neuraxial Date/Time: 10/16/21 10:26 Neuraxial medications: epidural PF morphine Opiod-related complaints: none Patient feedback: Patient satisfied with post-operative pain management.
[2021-10-16] MEDS: HYDROcodone/acetaminophen (*CRX) 5-325 MG TABLET 1 TAB PO (22:05)
[2021-10-17] MEDS: HYDROcodone/acetaminophen (*CRX) 10-325 MG TABLET 1 TAB PO ×4 (04:00→21:13)
[2021-10-17 06:08] LABS: Basophils Absolute Auto 0.1 K/mm3 (0.0-0.1); Basophils Percent Auto 0.3 % (0.2-1.2); Eosinophils Absolute Auto 0.2 K/mm3 (0-0.3); Eosinophils Percent Auto 1.1 % (0-4.4); Hematocrit 27.4 % (37.0-47.0); Hemoglobin 9.2 g/dL (12.0-15.0); Immature Granulocyte Absolute 0.18 K/mm3 (0.00-0.031); Lymphocytes Absolute Auto 1.77 K/mm3 (0.9-3.2); Lymphocytes Percent Auto 10.1 % (18.3-44.2); Mean Corpuscular HGB Conc 33.6 g/dl (32-36); Mean Corpuscular Hemoglobin 29.7 pg (26-34); Mean Corpuscular Volume 88.4 fl (80-100); Mean Platelet Volume 10.5 fl (7.4-10.4); Monocytes Absolute Auto 1.1 K/mm3 (0.1-0.6); Monocytes Percent Auto 6.3 % (2.6-8.5); Neutrophils Absolute Auto 14.2 K/mm3 (1.3-6.7); Neutrophils Percent Auto 81.2 % (45.5-73.1); Platelet Count Result 249 k/mm3 (150-375); Red Cell Distribution Width 13.1 % (11.5-14.5); White Blood Count 17.5 K/mm3 (4.5-10.0)
--- NOTE | 2021-10-17 07:16 | PM.OBPNVD ---
OB - PN: Subj Subjective Date/time seen: 10/17/21 07:16 She states adequate pain control. Has ambulated in the room. Positive flatus. Tolerating reg diet. Lochia mild. OB - PN: Obj Data Labs CBC & Chem 7: 10/17/21 05:35 10/15/21 07:32 Labs: Laboratory Results - last 24 hr 10/17/21 05:35 WBC 17.5 H RBC 3.10 L Hgb 9.2 L Hct 27.4 L MCV 88.4 MCH 29.7 MCHC 33.6 RDW 13.1 Plt Count 249 MPV 10.5 H Immature Gran % (Auto) 1.0 H Neut % (Auto) 81.2 H Lymph % (Auto) 10.1 L [place] % (Auto) 6.3 Eos % (Auto) 1.1 Baso % (Auto) 0.3 Lymph # (Auto) 1.77 [place] # (Auto) 1.1 H Eos # (Auto) 0.2 Baso # (Auto) 0.1 Abs Immat Gran (auto) 0.18 H Absolute Neuts (auto) 14.2 H Absolute Nucleated RBC 0.0 Nucleated RBC % 0.0 OB - PN A/P Assessment and Plan (1) delivery delivered: Code(s): O82 - Encounter for delivery without indication Status: Acute Assessment and Plan: POD1 s/p primary c/s. She is doing well. Routine post op care. Time Spent With Patient Time: Total time spent is greater than 50% in coordination of care (as documented) at patient's floor/unit and/or counseling patient: Exam Const: General: comfortable and no acute distress Resp: Effort & Inspection: normal respiratory effort Auscultation: clear to auscultation bilaterally Cardio: Rate: regular rate GI: Other: decreased bowel sounds, incision c/d/i Fundus firm at umbilicus Extrem: Other: 1+ edema LE bilat, nontender bilat Psych: Mental Status: mental status grossly normal Affect: normal affect
[2021-10-17] MEDS: IBUPROFEN 600 MG TABLET PO ×2 (07:30→21:12)
[2021-10-17 08:00] VITALS: BP 154/96; PULSE 96; RESP 20; TEMP 37; O2SAT 97
[2021-10-17] MEDS: MULTIVIT/MIN/PREN/FOL AC/IRON TABLET 1 TAB PO (08:58)
[2021-10-17] MEDS: POLYSACCHARIDE IRON COMPLEX 150 MG CAPSULE PO ×2 (08:58→17:01)
[2021-10-17] MEDS: DOCUSATE SODIUM 100 MG CAPSULE PO ×2 (08:59→17:01)
[2021-10-17 11:00] VITALS: BP 142/96; PULSE 86; RESP 16; TEMP 36.9; O2SAT 98
[2021-10-17] MEDS: TETANUS,DIPHTHERIA,AC PERTUSSIS ADULT (0.5 ML) BOOSTRIX IM (15:58)
[2021-10-17 16:00] VITALS: BP 144/95; PULSE 98; RESP 18; TEMP 37.1; O2SAT 99
[2021-10-17 17:30] LABS: Basophils Absolute Auto 0.1 K/mm3 (0.0-0.1); Basophils Percent Auto 0.4 % (0.2-1.2); Eosinophils Absolute Auto 0.3 K/mm3 (0-0.3); Eosinophils Percent Auto 1.5 % (0-4.4); Hematocrit 28.6 % (37.0-47.0); Hemoglobin 9.3 g/dL (12.0-15.0); Immature Granulocyte Absolute 0.26 K/mm3 (0.00-0.031); Immature Granulocyte Percent A 1.5 % (0-0.5); Lymphocytes Absolute Auto 2.27 K/mm3 (0.9-3.2); Lymphocytes Percent Auto 13.1 % (18.3-44.2); Mean Corpuscular HGB Conc 32.5 g/dl (32-36); Mean Corpuscular Hemoglobin 29.8 pg (26-34); Mean Corpuscular Volume 91.7 fl (80-100); Mean Platelet Volume 10.4 fl (7.4-10.4); Monocytes Absolute Auto 1.1 K/mm3 (0.1-0.6); Monocytes Percent Auto 6.6 % (2.6-8.5); Neutrophils Absolute Auto 13.3 K/mm3 (1.3-6.7); Neutrophils Percent Auto 76.9 % (45.5-73.1); Platelet Count Result 243 k/mm3 (150-375); Red Blood Count 3.12 M/mm3 (4.2-5.4); Red Cell Distribution Width 13.2 % (11.5-14.5); White Blood Count 17.3 K/mm3 (4.5-10.0)
[2021-10-17 17:40] LABS: Alanine Aminotransferase 14 U/L (4-35); Albumin Level 2.8 g/dL (3.5-5.1); Alkaline Phosphatase 149 U/L (38-126); Anion Gap 3 mmol/L (8-16); Aspartate Amino Transferase 22 U/L (14-36); Bilirubin,Total 0.2 mg/dL (0.2-1.3); Blood Urea Nitrogen 11 mg/dL (7-17); Calcium 8.7 mg/dL (8.4-10.2); Carbon Dioxide 23 mmol/L (22-30); Chloride 108 mmol/L (98-107); Estimated CRCL calculation 125 ml/min; Estimated Glomerular Filt Rate > 60; Glucose 78 mg/dL (65-110); Potassium 3.7 mmol/L (3.4-5.0); Sodium 134 mmol/L (137-145); Uric Acid 5.5 mg/dL (2.5-7.5)
[2021-10-17 17:48] LABS: Creatinine Urine 205.6 mg/dL; Total Protein Urine Random 34 mg/dL; Ur Ttl Prot Creatinine Ratio 0.17 mg/mg (0-0.20)
[2021-10-17 18:40] VITALS: BP 146/91; PULSE 92; RESP 18; TEMP 36.7; O2SAT 100
[2021-10-17 19:09] VITALS: PULSE 91
[2021-10-17] MEDS: LABETALOL HCL 100 MG TABLET 200 MG PO (19:09)
[2021-10-17 22:40] VITALS: BP 138/84; PULSE 93; RESP 18; O2SAT 98
[2021-10-18] MEDS: IBUPROFEN 600 MG TABLET PO ×2 (03:54→11:17)
[2021-10-18] MEDS: HYDROcodone/acetaminophen (*CRX) 5-325 MG TABLET 1 TAB PO ×2 (03:54→11:18)
[2021-10-18 03:55] VITALS: BP 139/90; PULSE 95; RESP 16; TEMP 36.9; O2SAT 98
[2021-10-18 06:10] LABS: Rapid Plasma Reagin Non-Reactive (NonReactive)
--- NOTE | 2021-10-18 08:09 | PM.OBPNVD ---
OB - PN: Subj Subjective Date/time seen: 10/18/21 08:09 Patient comments: no complaints, pain well controlled, tolerating diet, flatus present and other (Ambulating and voiding without problems. Lochia similar to menses. No FELICIANO/visual changes) baby status: doing well OB - PN: Obj Data Labs CBC & Chem 7: 10/17/21 17:22 10/17/21 17:22 Labs: Laboratory Results - last 24 hr 10/15/21 10/17/21 10/17/21 07:32 17:22 17:22 WBC 17.3 H RBC 3.12 L Hgb 9.3 L Hct 28.6 L MCV 91.7 MCH 29.8 MCHC 32.5 RDW 13.2 Plt Count 243 MPV 10.4 Immature Gran % (Auto) 1.5 H Neut % (Auto) 76.9 H Lymph % (Auto) 13.1 L [place] % (Auto) 6.6 Eos % (Auto) 1.5 Baso % (Auto) 0.4 Lymph # (Auto) 2.27 [place] # (Auto) 1.1 H Eos # (Auto) 0.3 Baso # (Auto) 0.1 Abs Immat Gran (auto) 0.26 H Absolute Neuts (auto) 13.3 H Absolute Nucleated RBC 0.0 Nucleated RBC % 0.0 Sodium Potassium Chloride Carbon Dioxide Anion Gap BUN Creatinine Estim Creat Clear Calc Estimated GFR Glucose Uric Acid Calcium Total Bilirubin AST ALT Alkaline Phosphatase Total Protein Albumin U Random Total Protein 34 Urine Creatinine 205.6 Protein/Creat Ratio 2 0.17 RPR Non-reactive 10/17/21 17:22 WBC RBC Hgb Hct MCV MCH MCHC RDW Plt Count MPV Immature Gran % (Auto) Neut % (Auto) Lymph % (Auto) [place] % (Auto) Eos % (Auto) Baso % (Auto) Lymph # (Auto) [place] # (Auto) Eos # (Auto) Baso # (Auto) Abs Immat Gran (auto) Absolute Neuts (auto) Absolute Nucleated RBC Nucleated RBC % Sodium 134 L Potassium 3.7 Chloride 108 H Carbon Dioxide 23 Anion Gap 3 L BUN 11 Creatinine 0.60 L Estim Creat Clear Calc 125 Estimated GFR > 60 Glucose 78 Uric Acid 5.5 Calcium 8.7 Total Bilirubin 0.2 AST 22 ALT 14 Alkaline Phosphatase 149 H Total Protein 5.0 L Albumin 2.8 L U Random Total Protein Urine Creatinine Protein/Creat Ratio 2 RPR OB - PN A/P Plan day: 2 (s/p C section, doing well) Plan: routine care and discharge home (Follow up in 1 week) Time Spent With Patient Time: Total time spent is greater than 50% in coordination of care (as documented) at patient's floor/unit and/or counseling patient: Time with patient: less than 15 minutes Exam Const: General: no acute distress Resp: Auscultation: clear to auscultation bilaterally Cardio: Rate: regular rate Rhythm: regular rhythm GI: Inspection: non-distended, incision (Intact without erythema, drainage, or induration) and other (Fundus firm and nontender below umbilicus) GI Palp: Yes abdominal tenderness (appropriate) and Yes Soft to palpation Extrem: General: no edema
--- NOTE | 2021-10-18 08:10 | PM.OBDSVD ---
DS: Admitting Diagnosis Discharge Date 10/18/2021 Admitting Diagnosis gestational hypertension DS: Discharge Diagnosis Discharge Diagnosis (1) delivery delivered: Code(s): O82 - Encounter for delivery without indication Status: Acute (2) Gestational hypertension: Code(s): O13.9 - Gestational [-induced] hypertension without significant proteinuria, unspecified trimester Status: Acute (3) Gestational diabetes: Code(s): O24.419 - Gestational diabetes mellitus in , unspecified control Status: Acute OB - DS: Summary OB Procedures : PIH Mgmt OB Procedures Intrapartum: low cervical, transverse OB Procedures: : None Peripartum Data Infant Delivery Method: Section Procedures: Procedures Operation Date: 10/15/21 23:30 Actual Procedure Side Surgeon p Section Araceli Perez MD complications: none Status at Discharge Functional status at discharge: independent ambulation Overall status at discharge: patient is progressing back to baseline Time Spent with Patient Time attestation: Total time spent providing and/or coordinating discharge services: Time spent: Less than 30 minutes DS: Data Data Completed and Pending Pending studies at discharge: Pending at discharge 10/16/21 01:53 Surgical [PTH] Routine Labs on day of discharge: Labs from last 24 hours 10/17/21 10/17/21 10/17/21 17:22 17:22 17:22 WBC 17.3 H RBC 3.12 L Hgb 9.3 L Hct 28.6 L MCV 91.7 MCH 29.8 MCHC 32.5 RDW 13.2 Plt Count 243 MPV 10.4 Immature Gran % (Auto) 1.5 H Neut % (Auto) 76.9 H Lymph % (Auto) 13.1 L [place] % (Auto) 6.6 Eos % (Auto) 1.5 Baso % (Auto) 0.4 Lymph # (Auto) 2.27 [place] # (Auto) 1.1 H Eos # (Auto) 0.3 Baso # (Auto) 0.1 Abs Immat Gran (auto) 0.26 H Absolute Neuts (auto) 13.3 H Absolute Nucleated RBC 0.0 Nucleated RBC % 0.0 Sodium 134 L Potassium 3.7 Chloride 108 H Carbon Dioxide 23 Anion Gap 3 L BUN 11 Creatinine 0.60 L Estim Creat Clear Calc 125 Estimated GFR > 60 Glucose 78 Uric Acid 5.5 Calcium 8.7 Total Bilirubin 0.2 AST 22 ALT 14 Alkaline Phosphatase 149 H Total Protein 5.0 L Albumin 2.8 L U Random Total Protein 34 Urine Creatinine 205.6 Protein/Creat Ratio 2 0.17 RPR 10/15/21 07:32 WBC RBC Hgb Hct MCV MCH MCHC RDW Plt Count MPV Immature Gran % (Auto) Neut % (Auto) Lymph % (Auto) [place] % (Auto) Eos % (Auto) Baso % (Auto) Lymph # (Auto) [place] # (Auto) Eos # (Auto) Baso # (Auto) Abs Immat Gran (auto) Absolute Neuts (auto) Absolute Nucleated RBC Nucleated RBC % Sodium Potassium Chloride Carbon Dioxide Anion Gap BUN Creatinine Estim Creat Clear Calc Estimated GFR Glucose Uric Acid Calcium Total Bilirubin AST ALT Alkaline Phosphatase Total Protein Albumin U Random Total Protein Urine Creatinine Protein/Creat Ratio 2 RPR Non-reactive Discharge Plan Discharge Attending physician on discharge: Araceli Perez Discharging Clinician: Sari Vazquez Patient Disposition: Home, Self-Care Activity: no shower and pelvic rest Diet: as tolerated Wound Care Instructions: incision open to air Patient Instructions: Antibiotic Form Stand Alone Forms: General Discharge Information Follow-up/Referrals: Araceli Perez MD [Physician] - 1 Week Discharge Medications: New hydrocodone-acetaminophen 5-325 mg Tablet 1 tablet PO Q4H PRN (Reason: Moderate Pain (4-6)) Qty: 30 RF: 0 ibuprofen 600 mg Tablet 600 mg PO Q6H PRN (Reason: Cramping) Qty: 60 RF: 0 labetalol 100 mg Tablet 200 mg PO Q12HR Qty: 60 RF: 0 Continued One Daily 28 mg iron- 800 mcg combo pack 1 pkg PO HS RF: 0 Discontinued (DME) lancets [BD Microtai
[2021-10-18 08:35] VITALS: BP 145/89; PULSE 92; RESP 18; TEMP 36.4; O2SAT 100
[2021-10-18] MEDS: LABETALOL HCL 100 MG TABLET 200 MG PO (08:35)
[2021-10-18] MEDS: DOCUSATE SODIUM 100 MG CAPSULE PO (08:37)
[2021-10-18] MEDS: MULTIVIT/MIN/PREN/FOL AC/IRON TABLET 1 TAB PO (08:38)
[2021-10-18] MEDS: POLYSACCHARIDE IRON COMPLEX 150 MG CAPSULE PO (08:38)
--- NOTE | 2021-10-18 10:00 | PC.NURSE ---
Consult with pt., mother reports she started with and has now pumped and bottle feed. Mother has concerns with not seeing what infant is feeding. Mother feels for now she will continue to bottle feed and pump. Reviewed feeding cues, frequencies, duration of feedings, feeding elimination flow sheet, and signs of adequate intake. Demonstrated stimulation techniques to wake for feeding. Reviewed transition to breast milk, signs of adequate intake, and engorgement/relief. Reviewed regular medications mother is taking. Information provided per Ilene. Reviewed community resources on the [employer] website and in the Mom/Baby guide. Information on outpatient services provided. Reviewed breast pump care and usage, pumping schedule, nipple care, and collection and storage of breast milk. Encouraged [id number], breast massage and manual expression to stimulate supply. Assessed patient for correct flange size, placement and draw. Patient verbalizes and demonstrates understanding of instructions. Mother will pump on infant feeding schedule for 15 minutes. Mother had some concerns she was not p umping more than a few drops. Discussed colostrum vs milk supply and mother may not see more than a few drops the first few days, milk should transition in by day 3 and she may see more volume pumped per session.
[2021-10-18 11:42] VITALS: BP 131/85; PULSE 93; RESP 16; TEMP 36.6; O2SAT 100
[2021-10-20 09:53] VITALS: BP 167/93; PULSE 74; RESP 20; TEMP 37.4; O2SAT 100
== END 2021-10-18 14:16 | disposition home or self-care (01) | DRG 788 ==
LOC: ANHOB2 10-18 12:04 → ANHLDR 10-20 06:13 → ANHOB2 10-20 06:13
PROVIDERS: Obstetrics & Gynecology; Admitting Provider Student in an Organized Health Care Education/Training Program; PCP Nurse Practitioner Family; Visit Provider Obstetrics & Gynecology
PROC: 10907ZC Drainage of Amniotic Fluid, Therapeutic from Products of Conception, Via Natural or Artificial Opening (ICD-10-PCS; CPT 59514; principal; 2021-10-15 23:30)
DX: O13.4 Gestational [pregnancy-induced] hypertension without significant proteinuria, complicating childbirth (principal); O99.214 Obesity complicating childbirth; E66.01 Morbid (severe) obesity due to excess calories; O76 Abnormality in fetal heart rate and rhythm complicating labor and delivery; O62.1 Secondary uterine inertia; O77.0 Labor and delivery complicated by meconium in amniotic fluid; O24.420 Gestational diabetes mellitus in childbirth, diet controlled; Z3A.38 38 weeks gestation of pregnancy; Z37.0 Single live birth
CPT/HCPCS: 36415; 59025; 80053; 81001; 82570; 82948; 84156; 84550; 85025; 86592; 86850; 86900; 86901; 88307; 90715; 99199; A9270; J1885; J2274; J2405; J2590; J2795; J3010; J7030; J7120

== ENCOUNTER 2021-10-20 13:55 | Inpatient (IN) | payer OTHER, SELFPAY ==
[2021-10-20] VITALS (109 sets, daily range): BP systolic 125–173; BP diastolic 64–126; PULSE 58–98; RESP 20–28; TEMP 36.7–37.2; O2SAT 93–100; BMI 40.0
[2021-10-20] MEDS: LABETALOL HCL 100 MG TABLET 200 MG PO (11:39)
[2021-10-20 11:54] LABS: Basophils Absolute Auto 0.1 K/mm3 (0.0-0.1); Basophils Percent Auto 0.5 % (0.2-1.2); Eosinophils Absolute Auto 0.4 K/mm3 (0-0.3); Eosinophils Percent Auto 3.5 % (0-4.4); Hematocrit 28.2 % (37.0-47.0); Hemoglobin 9.2 g/dL (12.0-15.0); Immature Granulocyte Absolute 0.36 K/mm3 (0.00-0.031); Lymphocytes Absolute Auto 1.97 K/mm3 (0.9-3.2); Lymphocytes Percent Auto 16.5 % (18.3-44.2); Mean Corpuscular HGB Conc 32.6 g/dl (32-36); Mean Corpuscular Hemoglobin 29.2 pg (26-34); Mean Corpuscular Volume 89.5 fl (80-100); Mean Platelet Volume 10.1 fl (7.4-10.4); Monocytes Absolute Auto 0.9 K/mm3 (0.1-0.6); Monocytes Percent Auto 7.1 % (2.6-8.5); Neutrophils Absolute Auto 8.3 K/mm3 (1.3-6.7); Neutrophils Percent Auto 69.4 % (45.5-73.1); Platelet Count Result 348 k/mm3 (150-375); Red Blood Count 3.15 M/mm3 (4.2-5.4); Red Cell Distribution Width 12.9 % (11.5-14.5); White Blood Count 11.9 K/mm3 (4.5-10.0)
--- NOTE | 2021-10-20 11:54 | PC.NURSE ---
Dr. Vazquez informed of initial BP, Labetalol 200 mg given po as per her order, labs sent. Discussed pt hasn't had anything for pain since last night when she had a [place] 5mg with Motrin 600 mg and currently rating her pain a 7. Order received.
[2021-10-20] MEDS: HYDROcodone/acetaminophen (*CRX) 5-325 MG TABLET 1 TAB PO (12:04)
[2021-10-20 12:10] LABS: Alanine Aminotransferase 21 U/L (4-35); Alkaline Phosphatase 143 U/L (38-126); Anion Gap 6 mmol/L (8-16); Aspartate Amino Transferase 26 U/L (14-36); Bilirubin,Total 0.3 mg/dL (0.2-1.3); Blood Urea Nitrogen 15 mg/dL (7-17); Calcium 8.9 mg/dL (8.4-10.2); Carbon Dioxide 22 mmol/L (22-30); Chloride 108 mmol/L (98-107); Estimated Glomerular Filt Rate > 60; Glucose 89 mg/dL (65-110); Sodium 136 mmol/L (137-145); Uric Acid 6.4 mg/dL (2.5-7.5)
--- NOTE | 2021-10-20 12:24 | PC.NURSE ---
Dr. Vazquez informed of lab results, BP's remain in the severe range. Labetalol was given at 1139 and [place] at 1204. Discussed that pt has no headache, visual disturbance, epigastric/RUQ pain, just edema and brisk reflexes. MD would like to give the BP meds and pain medicine another hour to see if that helps her BP since she doesn't have a headache or visual changes.
--- NOTE | 2021-10-20 12:30 | PC.NURSE ---
Called to pt. room for assist with breast feeding questions. Mother reports she is unable to get infant to latch. Mother was discharged with a feeding plan of attempting infant to breast, supplementation and pumping. Mother originally began bottle feed early, she did not feel was getting enough with . She then began to pump to stimulate milk supply. was latching for most feedings Mother states once home refused to latch and mother only bottle fed and has not pumped regularly. Mother reports she is tired and has difficulties with the time of putting to breast, bottle feeding and pumping. Discussed stimulation and how it impacts milk supply and once milk is in how emptying the breasts will keep milk supply up. Mother would like to to latch and not need to supplement or pump. Reviewed is accustom to large amounts of formula (45-60 mls) per feeding and may not be satisfied at until the milk volume is equal to amount receiving by bottle. Mother may need to continue current feeding plan. Discussed increasing supplementation as requires to satisfactions. Reviewed paced feeding and suggested to stop when is satisfied, as long as infant is having required output. Mother will continue to pump on infant feeding schedule and will increase session to 20 minutes if pumping every 4 hours. Advised once mother's milk is in and when infant begins to nurse effectively with long draws and frequent swallowing noted, may decrease supplementation and discontinue pumping. Advised not to discontinue supplement until a pre/post feeding evaluation by PCP, Follow up RN or LC is completed. Assisted with to breast. able to latch correctly within a few attempts. nursed weakly with a few steady draws for a short bursts followed with long pausing. Infant was stimulated to wake and would repeat weak bursts of nursing, occasional swallowing noted. Reviewed signs of a correct latch, effective nursing and suck swallow ratio. Suggested mother stimulate while feeding to increase stimulation for milk supply, for increased intake and to assist with maintaining deep latch. would slip to shallow latch causing tenderness. Demonstrated how to adjust latch more deeply while feeding as needed. Discussed the difference of effective vs ineffective nursing. Advised is not effectively nursing at this time and not transferring adequate volume of milk at this time and need to remain on feeding plan. Nipple care reviewed of lanolin after feedings, warm compresses as needed
--- NOTE | 2021-10-20 13:19 | PC.NURSE ---
Paged Dr. Vazquez.
--- NOTE | 2021-10-20 13:38 | PC.NURSE ---
Dr. Vazquez re-paged.
--- NOTE | 2021-10-20 13:40 | PC.NURSE ---
Called Dr. Vazquez's office and left message that pt is still having severe BP's and to have MD call me.
[2021-10-20] MEDS: hydrALAZINE HCL 20 MG/ML VIAL 5 MG IV PUSH (14:14)
[2021-10-20] MEDS: MAGNESIUM SULF 4 GM/WATER100ML 4 GM/100 ML BAG IVPB (14:23)
[2021-10-20] MEDS: LACTATED RINGERS 1,000 ML 75 ML IV CONT (14:23)
[2021-10-20] MEDS: MAGNESIUM SULF 20GM/WATER500ML 500 ML 50 MG IV CONT (14:59)
--- NOTE | 2021-10-20 15:15 | PC.NURSE ---
Assisted pt with - infant in football hold. requires stimulation to suck.
--- NOTE | 2021-10-20 15:42 | PC.NURSE ---
Last BP of 150/126 was taken when pt had her arm bent and nursing infant. Repeat BP 152/82.
--- NOTE | 2021-10-20 16:08 | PC.NURSE ---
Dr. Vazquez in to see and examine pt. Reviewed care.
--- NOTE | 2021-10-20 16:11 | PM.IMHP ---
H&P: HPI History of Present Illness Date/Time: 10/20/21 16:11 s/p primary C section 10/16 and discharged 10/18 on labetalol 200 mg bid. She returned today for routine check and had severely elevated BP. She c/o SOB upon arrival, but it resolved once she took her abdominal binder off. She denies FELICIANO/visual changes, fever. Appetite decent without N/V. Lochia similar to menses. No urinary or bowel complaints. She is nursing without problems Chief Complaint: Elevated blood pressure Review of Systems Review of Systems: All systems reviewed & are unremarkable except as noted in HPI and below PMFSH Past Medical History Medical History Missed x1 Morbid obesity with BMI of 40.0-44.9, adult Surgical History Surgical History History of dilation and curettage 11/04/21 History of mandibular surgery Plate in chin, jaw surgery [place] teeth extracted 2006 Family History Family History Mother Hypertension Family history of sarcoidosis Grandparent Family history of elevated blood lipids Hypertension Depression with anxiety Heart disease Social History Social History Smoking packs per day: 0.25 Smoking cigarettes per day: 5.0 Years smoked: 10 Smoking pack-years: 2.50 Smoking status: Never smoker Tobacco type: cigarettes Smoking end date: 12/26/20 Additional smoking assessment comments: FOB smokes and encouraged to change clothes and not smoke around infant Alcohol intake: never Substance use: never Gender identity (if verbalized by the patient): Female Sexual Orientation (if Verbalized by the Patient): Straight or Heterosexual Spiritual care concerns: No Meds Home Medications and Allergies Home Medications Medication Instructions Recorded Confirmed Type vits 75-iron 28 mg-folic 1 pkg PO HS 04/06/21 10/20/21 History acid 800 mcg-omega-3 oral combo pack hydrocodone-acetaminophen 1 tablet PO Q4H PRN #30 tablet 10/18/21 10/20/21 Rx ibuprofen 600 mg PO Q6H PRN #60 tablet 10/18/21 10/20/21 Rx labetalol 200 mg PO Q12HR #60 tablet 10/18/21 10/20/21 Rx Allergies Allergy/AdvReac Type Severity Reaction Status Date / Time No Known Allergies Allergy Verified 10/15/21 06:32 Vital Signs Vital Signs - 24 hr 10/20/21 11:30 10/20/21 11:39 10/20/21 11:56 Temperature Pulse Rate 60 70 63 Respiratory Rate Blood Pressure 167/93 H 171/92 H Blood Pressure [Right Arm] 167/93 H Pulse Oximetry 10/20/21 12:01 10/20/21 12:20 10/20/21 12:30 Temperature 36.9 C Pulse Rate 64 60 58 L Respiratory Rate Blood Pressure 173/92 H 172/88 H 171/91 H Blood Pressure [Right Arm] Pulse Oximetry 10/20/21 12:47 10/20/21 13:01 10/20/21 13:16 Temperature Pulse Rate 62 64 61 Respiratory Rate Blood Pressure 154/88 H 167/91 H 171/91 H Blood Pressure [Right Arm] Pulse Oximetry 10/20/21 13:31 10/20/21 13:46 10/20/21 14:16 Temperature Pulse Rate 66 60 61 Respiratory Rate Blood Pressure 168/87 H 166/86 H 152/80 H Blood Pressure [Right Arm] Pulse Oximetry 10/20/21 14:23 10/20/21 14:29 10/20/21 14:31 Temperature 37.0 C Pulse Rate 65 62 Respiratory Rate 20 Blood Pressure 152/80 H 151/76 H Blood Pressure [Right Arm] Pulse Oximetry 98 96 10/20/21 14:34 10/20/21 14:39 10/20/21 14:44 Temperature Pulse Rate Respiratory Rate Blood Pressure Blood Pressure [Right Arm] Pulse Oximetry 97 97 97 10/20/21 14:45 10/20/21 14:46 10/20/21 14:49 Temperature Pulse Rate 77 Respiratory Rate Blood Pressure 137/64 Blood Pressure [Right Arm] Pulse Oximetry 97 97 10/20/21 14:54 10/20/21 14:59 10/20/21 15:01 Temperature Pulse Rate 80 71 Respiratory Rate
[2021-10-20] MEDS: LABETALOL HCL 100 MG TABLET 400 MG PO (17:55)
[2021-10-20] MEDS: IBUPROFEN 600 MG TABLET PO (18:06)
[2021-10-21] VITALS (23 sets, daily range): BP systolic 126–158; BP diastolic 65–100; PULSE 73–93; RESP 16–20; TEMP 36.6–37.1; O2SAT 94–99
[2021-10-21] MEDS: IBUPROFEN 600 MG TABLET PO ×3 (00:42→23:24)
[2021-10-21] MEDS: MAGNESIUM SULF 20GM/WATER500ML 500 ML 50 MG IV CONT ×2 (00:46→10:36)
[2021-10-21] MEDS: LACTATED RINGERS 1,000 ML 75 ML IV CONT (03:32)
[2021-10-21] MEDS: LABETALOL HCL 100 MG TABLET 400 MG PO ×2 (06:33→18:37)
--- NOTE | 2021-10-21 16:41 | PC.NURSE ---
Dr. Vazquez updated on patient and blood pressures. Received orders from Dr. Vazquez to take BPs at 1700 and [address] Vazquez with results. No further orders received at this time.
--- NOTE | 2021-10-21 17:45 | PC.NURSE ---
Dr. Vazquez at bedside assessing patient and discussing POC. Received orders from Dr. Vazquez to discharge patient to home, have patient increase her labetalol dose to 400mg BID, and to call tomorrow and schedule an appointment with Dr. Perez for next week. Patient verbalizes understanding and accepts POC.
--- NOTE | 2021-10-21 17:50 | P.PNOB_ITS ---
OB - PN: Subj Subjective Date/time seen: 10/21/21 17:50 Patient comments: no complaints, pain well controlled, tolerating diet, flatus present and other (Lochia less than menses. Ambulating and voiding without problems. No FELICIANO/visual changes) [place] baby status: doing well OB - PN: Obj Data Labs CBC & Chem 7: 10/20/21 11:35 10/20/21 11:35 OB - PN A/P Assessment and Plan (1) Severe pre-eclampsia, : Code(s): O14.15 - Severe pre-eclampsia, complicating the puerperium Status: Acute Assessment and Plan: BP mildly elevated off magnesium, on labetalol 400 mg po bid. Continue current dose and f/u in 1 week in office. Reviewed signs/sx pre-E Plan day: 5 (s/p section, doing well and ready to be discharged home) Plan: routine care, discharge home and other (Follow up in office in 1 week) Time Spent With Patient Time: Total time spent is greater than 50% in coordination of care (as documented) at patient's floor/unit and/or counseling patient: Time with patient: less than 15 minutes Exam Const: General: no acute distress Resp: Auscultation: clear to auscultation bilaterally Cardio: Rate: regular rate Rhythm: regular rhythm GI: Inspection: non-distended, incision (Intact without erythema, drainage, or induration) and other (Fundus firm and nontender below umbilicus) GI Palp: Yes abdominal tenderness (appropriate) and Yes Soft to palpation Extrem: General: no edema
--- NOTE | 2021-10-21 17:53 | PM.OBDSVD ---
DS: Admitting Diagnosis Discharge Date 10/21/2021 Admitting Diagnosis preeclampsia DS: Discharge Diagnosis Discharge Diagnosis (1) Severe pre-eclampsia, : Code(s): O14.15 - Severe pre-eclampsia, complicating the puerperium Status: Acute OB - DS: Summary OB Procedures : PIH Mgmt OB Procedures Intrapartum: low cervical, transverse OB Procedures: : None Peripartum Data Infant Delivery Method: Section Status at Discharge Functional status at discharge: independent ambulation Overall status at discharge: patient is progressing back to baseline Time Spent with Patient Time attestation: Total time spent providing and/or coordinating discharge services: Time spent: Less than 30 minutes Discharge Plan Discharge Attending physician on discharge: Sari Vazquez Discharging Clinician: Sari Vazquez Patient Disposition: Home, Self-Care Activity: may shower and pelvic rest Diet: as tolerated Wound Care Instructions: incision open to air Patient Instructions: Antibiotic Form Stand Alone Forms: General Discharge Information Follow-up/Referrals: Araceli Perez MD [Physician] - 1 Week Discharge Medications: New labetalol 100 mg Tablet 400 mg PO Q12H Qty: 0 RF: 0 Continued One Daily 28 mg iron- 800 mcg combo pack 1 pkg PO HS RF: 0 hydrocodone-acetaminophen 5-325 mg Tablet 1 tablet PO Q4H PRN (Reason: Moderate Pain (4-6)) Qty: 30 RF: 0 ibuprofen 600 mg Tablet 600 mg PO Q6H PRN (Reason: Cramping) Qty: 60 RF: 0 Discontinued labetalol 100 mg Tablet 200 mg PO Q12HR Qty: 60 RF: 0 Date of admission: 10/21/21 00:51 Primary Care Provider: Susan Rodriguez Admitting Provider: Sari Vazquez Attending physician on admission: Araceli Perez Condition: Stable
--- NOTE | 2021-10-21 18:00 | PC.NURSE ---
Report given to Javier Sommer RN. Patient called out requesting to stay overnight and continue to have her BPs monitored. POC reviewed with Dr. Vazquez and patient to stay and be monitored overnight.
--- NOTE | 2021-10-21 18:03 | PC.NURSE ---
RN to pt bedside. Pt stating she would rather just stay tonight and go home in the morning. Dr. Vazquez on the unit and updated with the pt request. Dr. Vazquez aware. Orders received for pt to have 400mg of Labetalol at 1830 tonight and pt can have 5mg of Ambien at bedtime if needed. BP orders q2hr while awake and q4hr while sleeping. No other new orders at this time.
[2021-10-22 01:56] VITALS: BP 128/65; PULSE 71
[2021-10-22 04:43] VITALS: BP 156/82; PULSE 71
[2021-10-22 05:43] VITALS: PULSE 89; O2SAT 97
[2021-10-22 05:44] VITALS: BP 154/78; PULSE 75; PULSE 80
[2021-10-22] MEDS: LABETALOL HCL 100 MG TABLET 400 MG PO (05:44)
[2021-10-22 08:03] VITALS: BP 148/70; PULSE 66; RESP 16; TEMP 36.9
--- NOTE | 2021-10-22 08:20 | PC.NURSE ---
0815- Spoke with Dr. Vazquez, reviewed BP's, orders to discharge to home.
== END 2021-10-22 09:30 | disposition home or self-care (01) | DRG 776 ==
LOC: ANHOBOP 10-21 20:21 → ANHOBPP 10-21 20:21
PROVIDERS: Admitting Provider Obstetrics & Gynecology; PCP Nurse Practitioner Family; Visit Provider Obstetrics & Gynecology
DX: O14.15 Severe pre-eclampsia, complicating the puerperium (principal)
CPT/HCPCS: 36415; 80053; 84550; 85025; 99199; A9270; J0360; J3475; J7120